=== PATIENT | female | born 1980 ===

== ENCOUNTER 2016-11-02 07:30 | Emergency (ER) | payer OTHER ==
[2016-11-02 07:44] VITALS: BP 124/81
[2016-11-02] MEDS ORDERED: Lidocaine 2% VISCOUS* 15 ML UDC PO ONE (08:40)
[2016-11-02] MEDS ORDERED: Al Hydrox/Mg Hydrox/Simet LIQ* 30 ML UDC PO ONE (08:40)
--- NOTE | 2016-11-02 08:53 | UC ---
Amish Milan Angela, scribed for Alena Dunaway MD on 11/02/16 at 0827 . Cardiac HPI - HPI Summary HPI Summary: This pt is a 36 y/o female presenting to [facility] c/o left sided chest pain upon waking up today at 0430. She reports having palpitations and was feeling nauseous. Pt reports chest burning with symptoms. She took 2 aspirin and 0.25 mg Xanax [employer] with some relief. Pt now endorses feeling light-headed and mild continued nausea. No PO today. She states having palpitations for the last 2 weeks. Pt states 3-5 episodes per day, which also includes ext tingling. She notes a sudden onset of these episodes that last a few seconds. Pt currently denies paresthesias in UE or LE, vaginal discharge, dysuria, hematuria, bloody stools, sinus congestions, ear pain, long distance travel. She notes diarrhea, more frequency of defecating - no blood, no black. Pt reports getting these episodes of palpitations twice a month when she was in school, and was on Lexapro. She stopped taking Lexapro in 2014. States has been good for awhile, but not happening more frequenty. Pt currently takes Xanax PRN and has only taken it twice this year. LNMP: 2 days ago. Pt denies drug use but smokes tobacco and drinks alcohols occasionally. PMHx: panic attacks, anxiety. Patients medication reviewed this visit. - History of Current Complaint Chief Complaint: UCChestPain Stated Complaint: CHEST PAIN Time Seen by Provider: 11/02/16 07:40 Hx Obtained From: Patient Hx Last Menstrual Period: 10/31/16 Onset/Duration: Sudden Onset - chest pain, Lasting Days - palpitations Timing: Intermittent Episodes Lasting: - seconds Initial Severity: Moderate Current Severity: Mild Chest Pain Location: Discrete at: - epigastric, substernal Character: Tightness, Burning Alleviating: Nothing - ASA, xanax Associated Signs & Symptoms: Positive: Chest Pain, Tingling, Nausea/Vomiting - nausea but no vomiting, Palpitations. Negative: Vision Changes, Headaches, Numbness, Weakness, SOB, Syncope, Cough, Back Pain, Abdominal Pain - Allergy/Home Medications Allergies/Adverse Reactions: Allergies Allergy/AdvReac Type Severity Reaction Status Date / Time No Known Allergies Allergy Verified 11/02/16 07:34 Home Medications: Home Medications ALPRAZolam TAB* [Xanax TAB*] 11/02/16 [History] PMH/Surg Hx/FS Hx/Imm Hx Previously Healthy: Yes Psychological History: Anxiety, Other Other Psychological History: panic attacks - Surgical History Surgical History: None - Family History Known Family History: Positive: Cardiac Disease, Hypertension, Blood Disorder - Blood clot: mother (when taking control pills), Other - Breast and colon CA - Social History Occupation: Employed Full-time Lives: With Family Alcohol Use: Occasionally Substance Use Type: None Smoking Status (MU): Light Every Day Tobacco Smoker Amount Used/How Often: 1/2 p/wk Review of Systems Constitutional: Negative Skin: Negative Eyes: Other - visual changes - blurring with palpitations ENT: Negative Cardiovascular: Palpitations, Chest Pain Gastrointestinal: Diarrhea, Nausea Genitourinary: Negative Motor: Negative Neurovascular: Negative Musculoskeletal: Negative Neurological: Paresthesia - in ext, now resolved Psychological: Negative Is Patient Immunocompromised?: No All Other Systems Reviewed And Are Negative: Yes Physical Exam Triage Information Reviewed: Yes Appearance: Well-Appearing, No Pain Distress, Well-Nourished Vital Signs: Initial Vital Signs Temp 98.3 F 11/02/16 07:35 Pulse 89 11/02/16 07:35 Resp 16 11/02/16 07:35 BP 124/81 11/02/16 07:35 Pulse Ox 100 11/02/16 07:35 Vital Signs Reviewed: Yes Eye Exam: Normal Eyes: Positive: Conjunctiva Clear ENT Exam: Normal ENT: Positive: Hearing grossly normal, Pharynx normal, TMs normal Dental Exam: Normal Neck exam: Normal Neck: Positive: Supple, Nontender, No Lymphadenopathy, Other: Respiratory Exam: Normal Respiratory: Positive: Chest non-tender, Lungs clear, Normal breath sounds, No respiratory distress, No accessory muscle use Cardiovascular Exam: Normal Cardiovascular: Positive: RRR, No Murmur, Pulses Normal, Other: - no bruits b/l CBT < 2 sec Abdominal Exam: Normal Abdomen Description: Positive: No Organomegaly, Soft. Negative: Nontender - mild discomfort with palpation of epigastric - pt states similar to pain earlier today soft + BS no guarding, no rebound Bowel Sounds: Positive: Present Musculoskeletal Exam: Normal Musculoskeletal: Positive: Strength Intact, ROM Intact Neurological Exam: Normal Neurological: Positive: Alert Psychological Exam: Normal Psychological: Positive: Normal Response To Family Skin Exam: Normal Skin: Positive: rashes Diagnostics - EKG Cardiac Rate: NL - 81 bpm Cardiac Rhythm: Sinus: Normal - inverted T wave V2, V3. No STEMI. Re-Evaluation - Re-Evaluation First Eval Re-Evaluation Time: 08:59 Change: Improved Comment: Pt reports mild improvement of symtoms - Assessment/Plan Course Of Treatment: Pt presents with increasing episodes of palpitations and paresthesia. Pt with h/o similar in remote past - has not had recently. This am with epigastric, chest burning, sob, and paresthesia - now mostly resolved. Pt with mild epigastric pain on exam, but otherwise non concerning. EKG non concerning. will give GI cocktail. if improved, will start pepcid. d/w pt regarding GERD, food triggers. f/u with pcp - ?thyroid testing, reinstate lexapro. pt comfortable and in agreement with plan. return precautions discussed - Clinical Impression Provider Diagnoses: palpitations. epigastric pain Discharge - Discharge Plan Condition: Stable Disposition: HOME Prescriptions: Famotidine [Pepcid] 20 mg PO DAILY #30 tab Patient Education Materials: Palpitations (ED), Gastroesophageal Reflux Disease (ED) Forms: *School Release Referrals: No Primary Care Phys,NOPCP [Primary Care Provider] - Additional Instructions: - stay well hydrated, drink plenty of non-alcoholic, non-caffinated beverages - eat something small every 2-3 hours while awake - avoid spicy food, acidic food, tomato based foods - take pepcid daily as prescribed - okay to take Maalox or Tums for burning pain - contact your doctor in [place] to schedule a follow-up appointment. Contact your doctor, return here, go to the emergency department with any changes to your symptoms, questions or concerns The documentation as recorded by the Amish fuller Angela accurately reflects the service I personally performed and the decisions made by me, Alena Dunaway MD.
== END 2016-11-02 09:07 | disposition home or self-care (01) ==
LOC: UCEAST 07:30
DX: R00.2 Palpitations (principal); R10.13 Epigastric pain
CPT/HCPCS: 93005; 99212; A9270-GY; G0463